=== PATIENT | female | born 2005 | race Caucasian/White ===

== ENCOUNTER 2024-01-15 10:12 | Emergency (ER) | payer BC, OTHER, SELFPAY ==
[2024-01-15 10:14] VITALS: BP 128/84
--- NOTE | 2024-01-15 10:20 | ED.GENMED ---
ED Provider Triage
<Thanh Paul PA-C - Last Filed: 01/15/24 10:21>
-
Patient seen by provider in Triage?: Seen in Triage
18-year-old female with low-grade fever as high as 100.1 at home with associated upper abdominal pain lower back pain fever and diarrhea. No urinary symptoms. No vomiting.
Seen in triage. Vital signs stable.
Labs ordered.
History of Present Illness
<Thanh Paul PA-C - Last Filed: 01/15/24 10:21>
General
Chief Complaint: Abdominal Symptoms
Time Seen by Provider: 01/15/24 10:42
<Heriberto Gonzalez MD, Resident - Last Filed: 01/15/24 15:11>
General
Source: patient
Travel History
Have you traveled to any high risk areas for coronavirus over the past 14 days?: No
Have you had any contact with someone who has COVID-19?: No
Do you have any symptoms of coronavirus? Fever > 100 degrees, chills, cough, shortness of breath, sore throat, loss of taste or smell, muscle aches, or headache?: No
History of Present Illness
History of Present Illness:
Lisy Rowe, 18-year-old female, has been having intermittent fevers, chills, chest congestion, nausea, diarrhea, upper abdominal and lower back pain for the past week. Also has increased cough and mild chest congestion. Denies shortness of breath,
chest pain/tightness, burning micturition, urinary frequency urgency or hesitancy, headaches, lightheadedness, dizziness, fatigue, or night sweats. Denies any other changes to her health or change in medications.
Past History
<hTanh Paul PA-C - Last Filed: 01/15/24 10:21>
Past History
ED Past Medical History: None
ED Past Surgical History: None
<Heriberto Gonzalez MD, Resident - Last Filed: 01/15/24 15:11>
Past History
ED Past Medical History: Other (anxiety; migraine disorder)
ED Past Surgical History: None
Social History
Tobacco: Non-smoker
Alcohol: None
Drug: None
Review of Systems
<Heriberto Gonzalez MD, Resident - Last Filed: 01/15/24 15:11>
Review of Systems
Constitutional: Reports fever
Respiratory: Reports cough
Cardiac: Reports no symptoms
ABD/GI: Reports abdominal pain, nausea and diarrhea
: Reports no symptoms
Musculoskeletal: Reports no symptoms
Skin: Reports no symptoms
Neurological: Reports no symptoms
Endocrine: Reports no symptoms
Hematologic/Lymphatic: Reports no symptoms
Psychiatric: Reports no symptoms
Phy Exam
<Heriberto Gonzalez MD, Resident - Last Filed: 01/15/24 15:11>
General Physical Exam
General Presentation: well appearing and no apparent distress
General Skin: warm and dry
General Habitus: normal
General Mental: alert
General Hydration: appears well hydrated
ENT Exam
ENT Exam: EOMI, pharynx normal, neck supple and normocephalic
Eye Exam
Eye Exam: PERRL, cornea clear and conjunctiva normal
Cardiovascular Exam
Cardiovascular Exam: regular rate/rhythm, no edema, no murmur and normal peripheral pulses
Pulmonary Exam
Pulmonary Exam: lungs clear, no respiratory distress, no rales, no crackles, no rhonchi, no stridor, no wheezing and no cough
Gastrointestinal Exam
Gastrointestinal Exam: normal bowel sounds, soft, no organomegaly, no pulsatile mass, non distended, cva tenderness (bilateral) and tender (upper abdominal)
Neurological Exam
Neurological Exam: alert, oriented x3, no motor deficits and speech normal
Musculoskeletal Exam
Musculoskeletal Exam: full ROM and no edema
Skin Exam
Skin Exam: normal color, warm/dry, no rash and no petechia
Psychiatric Exam
Psychiatric Exam: normal mood/affect
Course
<Thanh Paul PA-C - Last Filed: 01/15/24 10:21>
Orders/Labs/Results
Orders:
Orders
01/15/24 10:20
Test Result ONCE
01/15/24 10:57
Acetaminophen [Tylenol] 650 mg PO NOW STA
Ondansetron HCl [Zofran] 4 mg PO NOW STA
CR Chest - 2 Views Urgent
Comment:
Reason For Exam: cough; congestion
01/15/24 11:29
COVID-19 Antigen Urgent
Source: Nasal Swab
Complete Blood Count/With Diff Urgent
Comprehensive Metabolic Panel Urgent
HCG, Serum Qualitative Screen Urgent
Lipase Urgent
Urinalysis Reflex To Culture Urgent
Date Specimen was Collected: 01/15/24
Time Specimen was Collected: 10:58
Influenza A+B Rapid Molecular Urgent
JORGE Source: Nasal Swab
Specimen Description:
01/15/24 12:41
US Abdomen Complete/Upper Urgent
Comment:
Reason For Exam: upper abdominal pain
01/15/24 12:45
Ibuprofen [Motrin] 600 mg PO NOW STA
01/15/24 11:29
01/15/24 11:29
Vital Signs
Initial and Last Documented VS:
Initial Vital Signs
Temp Pulse Resp BP Pulse Ox
99.3 F 95 18 128/84 100
01/15/24 10:14 01/15/24 10:14 01/15/24 10:14 01/15/24 10:14 01/15/24 10:14
Last Documented Vital Signs
Temp Pulse Resp BP Pulse Ox
99.3 F 78 18 109/75 98
01/15/24 10:14 01/15/24 14:34 01/15/24 14:34 01/15/24 14:34 01/15/24 14:34
<Heriberto Gonzalez MD, Resident - Last Filed: 01/15/24 15:11>
Orders/Labs/Results
Orders:
Orders
01/15/24 10:20
Test Result ONCE
01/15/24 10:57
Acetaminophen [Tylenol] 650 mg PO NOW STA
Ondansetron HCl [Zofran] 4 mg PO NOW STA
CR Chest - 2 Views Urgent
Comment:
Reason For Exam: cough; congestion
01/15/24 11:29
COVID-19 Antigen Urgent
Source: Nasal Swab
Complete Blood Count/With Diff Urgent
Comprehensive Metabolic Panel Urgent
HCG, Serum Qualitative Screen Urgent
Lipase Urgent
Urinalysis Reflex To Culture Urgent
Date Specimen was Collected: 01/15/24
Time Specimen was Collected: 10:58
Influenza A+B Rapid Molecular Urgent
JORGE Source: Nasal Swab
Specimen Description:
01/15/24 12:41
US Abdomen Complete/Upper Urgent
Comment:
Reason For Exam: upper abdominal pain
01/15/24 12:45
Ibuprofen [Motrin] 600 mg PO NOW STA
01/15/24 11:29
01/15/24 11:29
Vital Signs
Initial and Last Documented VS:
Initial Vital Signs
Temp Pulse Resp BP Pulse Ox
99.3 F 95 18 128/84 100
01/15/24 10:14 01/15/24 10:14 01/15/24 10:14 01/15/24 10:14 01/15/24 10:14
Last Documented Vital Signs
Temp Pulse Resp BP Pulse Ox
99.3 F 78 18 109/75 98
01/15/24 10:14 01/15/24 14:34 01/15/24 14:34 01/15/24 14:34 01/15/24 14:34
<Shanelle Brennan MD - Last Filed: 01/15/24 12:40>
Orders/Labs/Results
Orders:
Orders
01/15/24 10:20
Test Result ONCE
01/15/24 10:57
Acetaminophen [Tylenol] 650 mg PO NOW STA
Ondansetron HCl [Zofran] 4 mg PO NOW STA
CR Chest - 2 Views Urgent
Comment:
Reason For Exam: cough; congestion
01/15/24 11:29
COVID-19 Antigen Urgent
Source: Nasal Swab
Complete Blood Count/With Diff Urgent
Comprehensive Metabolic Panel Urgent
HCG, Serum Qualitative Screen Urgent
Lipase Urgent
Urinalysis Reflex To Culture Urgent
Date Specimen was Collected: 01/15/24
Time Specimen was Collected: 10:58
Influenza A+B Rapid Molecular Urgent
JORGE Source: Nasal Swab
Specimen Description:
01/15/24 12:41
US Abdomen Complete/Upper Urgent
Comment:
Reason For Exam: upper abdominal pain
01/15/24 12:45
Ibuprofen [Motrin] 600 mg PO NOW STA
01/15/24 11:29
01/15/24 11:29
Vital Signs
Initial and Last Documented VS:
Initial Vital Signs
Temp Pulse Resp BP Pulse Ox
99.3 F 95 18 128/84 100
01/15/24 10:14 01/15/24 10:14 01/15/24 10:14 01/15/24 10:14 01/15/24 10:14
Last Documented Vital Signs
Temp Pulse Resp BP Pulse Ox
99.3 F 78 18 109/75 98
01/15/24 10:14 01/15/24 14:34 01/15/24 14:34 01/15/24 14:34 01/15/24 14:34
<Heriebrto Gonzalez MD, Resident - Last Filed: 01/15/24 15:11>
MDM/Problems Addressed
Differential Diagnosis Includes:
UTI; low back pain; viral syndrome
MDM/Problems Addressed:
Work-up and vitals unremarkable. US abdomen did not show any abnormalities. Pain better controlled with acetaminophen and ibuprofen. Ondansetron helped with nausea. Discussed that this is likely viral gastroenteritis or gastritis. Discussed
outpatient management. Patient agreeable.
<Heriberto Gonzalez MD, Resident - Last Filed: 01/15/24 15:11>
*Critical Care Note
Total Time (30-74mins, 75-104mins- exclusive of procedures): Not Applicable
ED Attending Note
<Thanh Paul PA-C - Last Filed: 01/15/24 10:21>
-
Portions of this chart may have been created with voice recognition software.� Occasional wrong word or��sound alike� substitutions may have occurred due to the inherent limitations of voice recognition software.
<Shanelle Brennan MD - Last Filed: 01/15/24 12:40>
ED Attending Note
Patient seen and examined by attending physician: Yes
I performed a history and physical exam of patient and discussed management with resident, I reviewed resident's note and agree with documented findings and plan of care.: Yes
ED Attending Note:
Patient appears well nontoxic. She has no respiratory distress. Lungs are clear. Abdomen has mild bilateral upper abdominal tenderness without distention or peritonitis. We will do an ultrasound to rule out gallbladder disease. If that is
negative, patient will be discharged and encouraged to take an antacid and Tylenol
Discharge Plan
Departure
Patient Disposition: Home (Routine Discharge)
Date of Disposition: 01/15/24
Time of Disposition: 14:17
Patient with high blood pressure during this ER visit?: No
Condition: Good
Discharge Problem:
Viral gastroenteritis
Instructions: Gastritis, Viral gastroenteritis in adults, [employer] Diet
Prescriptions:
New
ondansetron HCl 4 mg tablet
4 mg PO Q8H PRN (Reason: nausea and vomiting) Qty: 14 0RF
pantoprazole 20 mg tablet,delayed release (DR/EC)
20 mg PO DAILY 14 Days Qty: 14 0RF
No Action
alum-mag hydroxide-simeth [Antacid Regular Strength] 200-200-20 mg/5 mL suspension
20 ml PO TID PRN (Reason: indigestion) Qty: 500 0RF
ciprofloxacin HCl [Cipro] 250 mg tablet
250 mg PO BID Qty: 10 0RF
phenazopyridine [Pyridium] 200 mg tablet
200 mg PO TID PRN (Reason: Pain) Qty: 10 0RF
Referrals:
UNKNOWN - PT DOES,NOT KNOW [Family Provider] -
Stand Alone Forms: Return to Work
Activity Restrictions/Additional Instructions:
Please return to the emergency with worsening abdominal pain, nausea, fever, fatigue or lethargy.
Interventions
Interventions:
*Risk Screen - Suicide Last Done: 01/15/24 10:14
*General Assessment Last Done: 01/15/24 10:14
*Neglect/Abuse Screening Last Done: 01/15/24 10:14
*ED COVID-19 Vaccine History Last Done: 01/15/24 10:14
*Nursing Disposition Last Done: 01/15/24 14:34
PL-Nhcpeg-Zuxdqdolzk Assessment Last Done: 01/15/24 11:05
Discharge Date and Time
Discharge Date/Time: 01/15/24 14:35
Print Language: IRISH
[2024-01-15 11:08] VITALS: BP 118/71
[2024-01-15] MEDS: TYLENOL 650 MG PO (11:27)
[2024-01-15] MEDS: ZOFRAN 4 MG PO (11:27)
[2024-01-15 11:53] LABS: % Basophils 0.4 % (0-2); % Eosinophils 0.6 % (0-6); % Immature Granulocytes 0.2 % (0-0.5); % Lymphocytes 45.8 % (20.5-51.1); % Monocytes 7.4 % (1.7-9.3); % Neutrophils 45.6 % (42.2-75.2); Absolute Lymphocytes 2.3 10^3/uL (1.2-3.4); Absolute Monocytes 0.4 10^3/uL (0.1-0.6); Absolute Neutrophils 2.3 10^3/uL (1.4-6.5); Hemoglobin 13.1 g/dL (12.0-16.0); Mean Corp Hgb Conc. 33.6 g/dL (33.0-37.0); Mean Corpuscular Hgb 29.1 pg (27.0-31.0); Mean Corpuscular Volume 86.7 fL (81.0-99.0); Mean Platelet Volume 10.3 fL (7.4-10.4); Nucleated Red Blood Cells % 0 %; Platelet Count 248 10^3/uL (130-400); Red Cell Dist. Width 11.9 % (11.5-14.5); White Blood Cell Count 5.1 10^3/uL (4.8-10.8)
[2024-01-15 11:54] LABS: HCG, Serum Qualitative Screen Negative
[2024-01-15 11:56] LABS: ALT (SGPT) 14 U/L (0-35); AST (SGOT) 20 U/L (14-36); Albumin 4.8 g/dl (3.5-5.0); Alkaline Phosphatase 65 U/L (38-126); Blood Urea Nitrogen 13 mg/dl (7-17); Calcium 9.7 mg/dl (8.4-10.2); Carbon Dioxide 26 mmol/L (22-30); Chloride 103 mmol/L (98-107); Glucose 70 mg/dl (70-99); Lipase 54 U/L (23-300); Potassium 4.2 mmol/L (3.5-5.1); Sodium 141 mmol/L (135-145); Total Bilirubin 0.4 mg/dl (0.2-1.3); Total Protein 6.9 g/dl (6.3-8.2); eGFR > 60.00
[2024-01-15 11:59] LABS: COVID-19 Antigen Negative (Negative)
[2024-01-15 12:00] VITALS: BP 107/61
[2024-01-15 12:04] LABS: Urine Albumin Negative (Neg - Trace); Urine Bilirubin Negative (Negative); Urine Character Clear (Clear); Urine Color Yellow; Urine Glucose Negative (Negative); Urine Ketone Negative (Negative); Urine Leukocyte Negative (Negative); Urine Nitrite Negative (Negative); Urine Occult Blood Negative (Negative); Urine Specific Gravity 1.015 (<1.030); Urine Urobilinogen Negative (Neg - 1+)
[2024-01-15] MEDS: MOTRIN 600 MG PO (14:15)
[2024-01-15 14:34] VITALS: BP 109/75
== END 2024-01-15 14:35 | disposition home or self-care (01) ==
LOC: EMR 10:12
PROVIDERS: Physician Assistant; Student in an Organized Health Care Education/Training Program; EMERGENCY PHYSICIAN Emergency Medicine
DX: A08.4 Viral intestinal infection, unspecified (principal); Z11.52 Encounter for screening for COVID-19
CPT/HCPCS: 99285; 71046; 76700; 80053; 81003; 83690; 84703; 85025; 87502; 87811

== ENCOUNTER 2024-07-19 20:36 | Emergency (ER) | payer BC, OTHER, SELFPAY ==
[2024-07-19] VITALS (11 sets, daily range): BP systolic 102–141; BP diastolic 55–115; BMI 25.1
[2024-07-19] MEDS: SOLU-CORTEF 100 MG IV (20:50)
[2024-07-19] MEDS: ADRENALIN 0.3 MG IM ×2 (20:51→22:15)
[2024-07-19] MEDS: PEPCID 20 MG IV (20:56)
--- NOTE | 2024-07-19 21:05 | ED.GENMED ---
History of Present Illness
<Brandon Peñaloza PA-C - Last Filed: 07/19/24 23:57>
General
Chief Complaint: Allergic Reaction
Source: patient and family
Time Seen by Provider: 07/19/24 20:48
History of Present Illness
History of Present Illness:
18-year-old female with past medical history of migraines presenting to the ER with mother for evaluation after patient started having shortness of breath, difficulty breathing, coughing, diffuse body itching and a sensation of her throat closing
that occurred while she was out at a local restaurant noting that she had some fried shrimp and Frisian fries but has no known history of food allergy. Patient did take 50 mg of Benadryl prior to arrival but states no relief with this. Patient
denies any chest pain or any other concerns at this time.
Past History
<Brandon Peñaloza PA-C - Last Filed: 07/19/24 23:57>
Social History
Personal: Single
Living: with family
<Michael Kong DO - Last Filed: 07/20/24 01:40>
Past History
ED Past Medical History: Other (anxiety; migraine disorder)
ED Past Surgical History: None
Social History
Tobacco: Non-smoker
Alcohol: None
Drug: None
Review of Systems
<Brandon Peñlaoza PA-C - Last Filed: 07/19/24 23:57>
Review of Systems
All Other Systems: ROS reviewed and negative except as documented in HPI and ROS
Phy Exam
<OPHELIA Ness Last Filed: 07/19/24 23:57>
Physical Exam
Physical Exam:
GENERAL: Alert , in no apparent distress
EYE: conjunctiva clear
NECK: Supple, no significant adenopathy.
ENT: o/p clr, mmm. No uvular deviation, unable to visualize the epiglottis, no tonsillar edema
CARDIAC: Tachycardic rate and rhythm
LUNGS: Clear lung sounds bilaterally however patient does have a stridorous cough and while she is able to speak, is coughing throughout the exam and often cannot make it through a sentence without coughing
NEUROLOGICAL: Alert and oriented
SKIN: Warm and dry, skin intact.
MUSCULOSKELETAL: well perfused.
PSYCH: Normal and appropriate interaction.
Scores
<Brandon Peñaloza PA-C - Last Filed: 07/19/24 23:57>
Heart Failure Risk
Heart Failure Risk Score: Not Applicable
Heart Score for Chest Pain Patients
STEMI patient?: Not applicable
Withdrawal Assessment of Alcohol
Withdrawal Assessment Completed?: Not applicable
Course
<Brandon Peñaloza PA-C - Last Filed: 07/19/24 23:57>
Orders/Labs/Results
Orders:
Orders
07/19/24 20:48
Diphenhydramine [Benadryl] 50 mg .ROUTE .STK-MED ONE
EPINEPHrine PF [Adrenalin] 1 mg .ROUTE .STK-MED ONE
07/19/24 20:49
Hydrocortisone Sod Succinate [Solu-Cortef] 100 mg .ROUTE .STK-MED ONE
07/19/24 20:50
EPINEPHrine PF [Adrenalin] 0.3 mg IM NOW STA
Hydrocortisone Sod Succinate [Solu-Cortef] 100 mg IV NOW STA
07/19/24 20:52
Famotidine [Pepcid] 20 mg .ROUTE .STK-MED ONE
07/19/24 20:56
Famotidine [Pepcid] 20 mg IV NOW STA
07/19/24 22:14
EPINEPHrine PF [Adrenalin] 0.3 mg IM NOW STA
Vital Signs
Initial and Last Documented VS:
Initial Vital Signs
Pulse Resp BP Pulse Ox
105 24 138/97 100
07/19/24 20:39 07/19/24 20:39 07/19/24 20:39 07/19/24 20:39
Last Documented Vital Signs
Pulse Resp BP Pulse Ox
90 25 120/68 97
07/20/24 01:15 07/20/24 01:15 07/20/24 01:15 07/20/24 01:15
Film Coater consulted with Physician
Film Coater consulted with physician?: Yes
Name of Physician Consulted: Francis
<Michael Kong, DO - Last Filed: 07/20/24 01:40>
Orders/Labs/Results
Orders:
Orders
07/19/24 20:48
Diphenhydramine [Benadryl] 50 mg .ROUTE .STK-MED ONE
EPINEPHrine PF [Adrenalin] 1 mg .ROUTE .STK-MED ONE
07/19/24 20:49
Hydrocortisone Sod Succinate [Solu-Cortef] 100 mg .ROUTE .STK-MED ONE
07/19/24 20:50
EPINEPHrine PF [Adrenalin] 0.3 mg IM NOW STA
Hydrocortisone Sod Succinate [Solu-Cortef] 100 mg IV NOW STA
07/19/24 20:52
Famotidine [Pepcid] 20 mg .ROUTE .STK-MED ONE
07/19/24 20:56
Famotidine [Pepcid] 20 mg IV NOW STA
07/19/24 22:14
EPINEPHrine PF [Adrenalin] 0.3 mg IM NOW STA
Vital Signs
Initial and Last Documented VS:
Initial Vital Signs
Pulse Resp BP Pulse Ox
105 24 138/97 100
07/19/24 20:39 07/19/24 20:39 07/19/24 20:39 07/19/24 20:39
Last Documented Vital Signs
Pulse Resp BP Pulse Ox
90 25 120/68 97
07/20/24 01:15 07/20/24 01:15 07/20/24 01:15 07/20/24 01:15
<Brandon Peñaloza PA-C - Last Filed: 07/19/24 23:57>
MDM/Problems Addressed
Differential Diagnosis Includes:
Suspected anaphylactic reaction however unclear as to what patient may have had anaphylaxis to, I do not have concern for infectious etiology such as strep throat, peritonsillar abscess, retropharyngeal abscess
MDM/Problems Addressed:
18-year-old female presenting to the ER for evaluation after she began with an anaphylactic like reaction after eating dinner at a local restaurant. Patient with no known food allergies or any medication allergies. Treated with 50 mg of Benadryl
prior to arrival. Given her presentation I do have concern for anaphylaxis so a dose of epinephrine, hydrocortisone and Pepcid were given. After about 10 minutes patient did start to note improvement of symptoms and lessening of her cough. Will
observe for extended period of time to ensure no delayed onset reaction. Will dose additional epinephrine as needed.
<Brandon Peñaloza PA-C - Last Filed: 07/19/24 23:57>
*Pulse Oximetry
Patient hypoxic: no
*Critical Care Note
Total Time (30-74mins, 75-104mins- exclusive of procedures): 30
comment:
Critical care statement: A total of 30 minutes of critical care time was provided for this patient. This includes management of unstable vital signs, evaluation of the patient at bedside, reviewing the patient's pertinent medical records, discussion
with consultants, review of old EKGs and review of pertinent medical records. This time with separate from time utilized to perform the aforementioned documented procedures
<Michael Kong DO - Last Filed: 07/20/24 01:40>
Data Reviewed
Source: patient and family
<Brandon Peñaloza PA-C - Last Filed: 07/19/24 23:57>
Comment
Comment:
10:15 PM: On multiple reevaluations patient reported full resolution of symptoms however at this time patient started coughing and stating she felt the abnormal sensation in her throat again. No stridor at this point but given her initial
presentation and rapidly reoccurring symptoms we will treat with second dose of epinephrine
10:30-11:00 PM: Patient's symptoms much improved following second dose of epinephrine. On continuous reevaluation she reports feeling much better and eventually fell asleep.
<Michael Kong DO - Last Filed: 07/20/24 01:40>
Patient Management
Escalation/DeEscalation of care consider admission/obs:
Patient observed over several hours now feels much improved. EpiPen for home and okay for discharge with outpatient allergy testing. Airway patent. Voice normal. No stridor. No wheezing. Pulse ox normal
ED Attending Note
<DO Mitesh Rocha Last Filed: 07/20/24 01:40>
ED Attending Note
Patient seen and examined by attending physician: Yes
I performed the substantive portion of visit, reviewed & personally made and approve the management plan that is documented in note by myself or TU.: Yes
-
Portions of this chart may have been created with voice recognition software.� Occasional wrong word or��sound alike� substitutions may have occurred due to the inherent limitations of voice recognition software.
Discharge Plan
Departure
Patient Disposition: Home (Routine Discharge)
Date of Disposition: 07/20/24
Time of Disposition: 01:39
Patient with high blood pressure during this ER visit?: No
Discharge Problem:
Anaphylactic reaction
Instructions: Anaphylaxis - Discharge instructions
Prescriptions:
New
prednisone 20 mg tablet
40 mg PO DAILY 5 Days Qty: 10 0RF
epinephrine [EpiPen] 0.3 mg/0.3 mL auto-injector
0.3 mg IM .STAT PRN (Reason: anaphylaxis) Qty: 1 0RF
No Action
alum-mag hydroxide-simeth [Antacid Regular Strength] 200-200-20 mg/5 mL suspension
20 ml PO TID PRN (Reason: indigestion) Qty: 500 0RF
ciprofloxacin HCl [Cipro] 250 mg tablet
250 mg PO BID Qty: 10 0RF
phenazopyridine [Pyridium] 200 mg tablet
200 mg PO TID PRN (Reason: Pain) Qty: 10 0RF
ondansetron HCl 4 mg tablet
4 mg PO Q8H PRN (Reason: nausea and vomiting) Qty: 14 0RF
pantoprazole 20 mg tablet,delayed release (DR/EC)
20 mg PO DAILY 14 Days Qty: 14 0RF
Referrals:
Ary Beth CRNP [Family Provider] -
Miranda Islas MD [Consulting Staff] - (Samples And Repairs Preparer)
Activity Restrictions/Additional Instructions:
Return immediately for difficulty breathing, tongue swelling, lip swelling, intractable vomiting or any other concerns. Please follow-up with your doctor and allergy in the next 3 to 5 days.
Interventions
Interventions:
ED- Cardiac Assessment Last Done: 07/19/24 20:50
ED- Pulmonary Assessment Last Done: 07/19/24 22:52
ED-Skin Assessment Last Done: 07/19/24 20:50
Discharge Date and Time
Print Language: ANDORRAN
[2024-07-20] VITALS: BP 121/78
[2024-07-20 00:15] VITALS: BP 99/80
[2024-07-20 00:30] VITALS: BP 113/72
[2024-07-20 00:45] VITALS: BP 114/70
[2024-07-20 01:00] VITALS: BP 127/69
[2024-07-20 01:15] VITALS: BP 120/68
== END 2024-07-20 01:51 | disposition home or self-care (01) ==
LOC: EMR 20:36
PROVIDERS: EMERGENCY PHYSICIAN Emergency Medicine; FAMILY PHYSICIAN Nurse Practitioner Family
DX: T78.2XXA Anaphylactic shock, unspecified, initial encounter (principal); X58.XXXA Exposure to other specified factors, initial encounter
CPT/HCPCS: 99291; 96374; 96375; 96372 ×2

== ENCOUNTER 2024-08-11 20:11 | Emergency (ER) | payer BC, OTHER, SELFPAY ==
[2024-08-11 20:13] VITALS: BP 179/76
[2024-08-11] MEDS: DECADRON 10 MG IV (20:26)
[2024-08-11] MEDS: BENADRYL 50 MG IV (20:28)
--- NOTE | 2024-08-11 20:29 | ED.GENMED ---
History of Present Illness
General
Chief Complaint: Allergic Reaction
Source: patient and family (Mother present at bedside)
Exam Limitations: none
Time Seen by Provider: 08/11/24 20:21
Nursing documentation reviewed up to this point in time: agreed with
History of Present Illness
History of Present Illness:
18-year-old female that presents to the emergency department with acute allergic reaction. Patient was at a bar with her mother and sister and had a sip of her sisters 'Jacqueline water'. Patient had 1 other allergic reaction in the past, coincidentally
after drinking jacqueline water patient states that the event occurred around 2 PM. She states that she took Benadryl and started feel better.. Symptoms worsened again several hours later. She took an EpiPen at 7:50 PM and came into the emergency
department. She is concerned because she had sore throat and cough.
Past History
Past History
ED Past Medical History: Other (anxiety; migraine disorder)
ED Past Surgical History: None
Social History
Tobacco: Non-smoker
Alcohol: None
Drug: None
Personal: Single
Living: with family
Review of Systems
Review of Systems
Allergies reviewed?: Yes
All Other Systems: ROS reviewed and negative except as documented in HPI and ROS
Constitutional: Reports no symptoms
EENT: Reports sore throat
Respiratory: Reports cough
Cardiac: Reports no symptoms
ABD/GI: Reports no symptoms
: Reports no symptoms
Musculoskeletal: Reports no symptoms
Skin: Reports no symptoms
Neurological: Reports no symptoms
Endocrine: Reports no symptoms
Hematologic/Lymphatic: Reports no symptoms
Psychiatric: Reports anxiety
Phy Exam
Physical Exam
Physical Exam:
Physical Exam
Vital signs and allergy list reviewed and agreed with.
GENERAL: Alert , in minimal apparent distress
EYE: pupils equal, EOMI, anicteric
NECK: Supple, no significant adenopathy. No masses. Trachea midline
ENT: Oropharynx is clear, mmm.
CARDIAC: Regular rate and rhythm . No M/R/G
LUNGS: Clear breath sounds bilaterally, no acute respiratory distress, no wheezes/rales/rhonchi. Coughing nonproductive cough
ABDOMEN: Soft, without focal tenderness, no r/g, no cvat. Normal BSx4q
NEUROLOGICAL: Alert and oriented, no focal neuro deficits
SKIN: Warm and dry, skin intact.
MUSCULOSKELETAL: No edema, well perfused. Moves all 4 extremities
PSYCH: Normal and appropriate interaction.
Course
Orders/Labs/Results
Orders:
Orders
08/11/24 20:24
Dexamethasone Pf [Decadron] 10 mg .ROUTE .STK-MED ONE
Dexamethasone Sod Phosphate [Decadron] 10 mg IV NOW STA
Diphenhydramine [Benadryl] 50 mg .ROUTE .STK-MED ONE
Diphenhydramine [Benadryl] 50 mg IV NOW STA
Vital Signs
Initial and Last Documented VS:
Initial Vital Signs
Temp Pulse Resp BP Pulse Ox
99.0 F 126 28 179/76 96
08/11/24 20:13 08/11/24 20:13 08/11/24 20:13 08/11/24 20:13 08/11/24 20:13
Last Documented Vital Signs
Temp Pulse Resp BP Pulse Ox
99.0 F 84 19 179/76 97
08/11/24 20:13 08/11/24 22:15 08/11/24 22:15 08/11/24 20:13 08/11/24 22:30
*Critical Care Note
Total Time (30-74mins, 75-104mins- exclusive of procedures): Not Applicable
Update Note
Update Note:
Patient resting comfortably, no acute distress. Anticipate discharge
ED Attending Note
-
Portions of this chart may have been created with voice recognition software.� Occasional wrong word or��sound alike� substitutions may have occurred due to the inherent limitations of voice recognition software.
Discharge Plan
Departure
Patient Disposition: Home (Routine Discharge)
Date of Disposition: 08/11/24
Time of Disposition: 22:32
Patient with high blood pressure during this ER visit?: Yes
Condition: Good
Discharge Problem:
Allergic reaction
Instructions: Allergic reaction - ED discharge instructions, BLOOD PRESSURE
Prescriptions:
New
diphenhydramine HCl [Benadryl] 25 mg capsule
25 mg PO TID PRN (Reason: allergy symptoms) Qty: 14 0RF
prednisone 50 mg Tablet
50 mg PO DAILY Qty: 4 0RF
epinephrine [EpiPen] 0.3 mg/0.3 mL Auto-Injector
0.3 mg IM .STAT PRN (Reason: anaphylaxis) Qty: 1 0RF
No Action
alum-mag hydroxide-simeth [Antacid Regular Strength] 200-200-20 mg/5 mL suspension
20 ml PO TID PRN (Reason: indigestion) Qty: 500 0RF
ciprofloxacin HCl [Cipro] 250 mg tablet
250 mg PO BID Qty: 10 0RF
phenazopyridine [Pyridium] 200 mg tablet
200 mg PO TID PRN (Reason: Pain) Qty: 10 0RF
ondansetron HCl 4 mg tablet
4 mg PO Q8H PRN (Reason: nausea and vomiting) Qty: 14 0RF
pantoprazole 20 mg tablet,delayed release (DR/EC)
20 mg PO DAILY 14 Days Qty: 14 0RF
prednisone 20 mg tablet
40 mg PO DAILY 5 Days Qty: 10 0RF
epinephrine [EpiPen] 0.3 mg/0.3 mL auto-injector
0.3 mg IM .STAT PRN (Reason: anaphylaxis) Qty: 1 0RF
Referrals:
Ary Beth CRNP [Family Provider] -
Miranda Islas MD [Consulting Staff] -
Activity Restrictions/Additional Instructions:
Thank You for choosing [facility].
It was a pleasure meeting you and taking part in your care. We hope for your continued healing and wellness.
Please read discharge instructions in their entirety. However, they are for general education and may not describe your exact diagnosis at discharge. Information on your ER visit and medical conditions were discussed with you along with appropriate
follow up information...
If indicated, please take your medications as instructed and indicated on discharge paperwork.
Please schedule a follow up appointment as directed. Call to schedule an appointment
Please return to the emergency department with ANY change in, persisting, or worsening of symptoms. If any of your symptoms do not improve, or persist, or become more severe within 6-12 hours, please return to the emergency department for further
care.
Please return to the emergency department if you develop a headache, neck pain/stiffness, fever greater than 100.4F, chest pain, shortness of breath, persistent nausea, vomiting, slurred speech, difficulty walking, numbness/tingling, weakness, signs
of infection or any other symptoms that are worrisome to you.
If you have any questions or concerns please do not hesitate to call the Hospital at or E-mail me directly at [email or web address]
Interventions
Interventions:
*Risk Screen - Suicide Last Done: 08/11/24 20:13
*General Assessment Last Done: 08/11/24 20:13
*Neglect/Abuse Screening Last Done: 08/11/24 23:11
*ED- Fall Risk Assessment Last Done: 08/11/24 23:11
*ED COVID-19 Vaccine History Last Done: 08/11/24 23:11
*Nursing Disposition Last Done: 08/11/24 23:11
ED- Cardiac Assessment Last Done: 08/11/24 23:11
ED- Pulmonary Assessment Last Done: 08/11/24 23:11
ED-Skin Assessment Last Done: 08/11/24 23:11
Discharge Date and Time
Discharge Date/Time: 08/11/24 23:12
Print Language: [id number]
[2024-08-11 20:30] VITALS: BMI 25.7
== END 2024-08-11 23:12 | disposition home or self-care (01) ==
LOC: EMR 20:11
PROVIDERS: EMERGENCY PHYSICIAN Student in an Organized Health Care Education/Training Program; FAMILY PHYSICIAN Nurse Practitioner Family
DX: T78.40XA Allergy, unspecified, initial encounter (principal); J02.9 Acute pharyngitis, unspecified; R05.9 Cough, unspecified; R03.0 Elevated blood-pressure reading, without diagnosis of hypertension; F41.9 Anxiety disorder, unspecified; G43.909 Migraine, unspecified, not intractable, without status migrainosus
CPT/HCPCS: 99284; 96374; 96375